=== PATIENT | male | born 1985 | race Caucasian/White ===

== ENCOUNTER 2024-04-18 12:27 | Emergency (ER) | payer BC, SELFPAY ==
[2024-04-18 12:30] VITALS: BP 130/90
[2024-04-18 12:58] LABS: Urine Albumin Negative (Neg - Trace); Urine Bilirubin Negative (Negative); Urine Character Clear (Clear); Urine Color Yellow; Urine Glucose Negative (Negative); Urine Ketone Negative (Negative); Urine Leukocyte Negative (Negative); Urine Nitrite Negative (Negative); Urine Occult Blood Negative (Negative); Urine Urobilinogen Negative (Neg - 1+); Urine pH 6.5 (5.0-9.0)
[2024-04-18 13:39] LABS: % Basophils 0.8 % (0-2); % Eosinophils 1.7 % (0-6); % Immature Granulocytes 0.4 % (0-0.5); % Monocytes 11.4 % (1.7-9.3); % Neutrophils 61.7 % (42.2-75.2); Absolute Eosinophils 0.1 10^3/uL (0-0.7); Absolute Lymphocytes 1.3 10^3/uL (1.2-3.4); Absolute Monocytes 0.6 10^3/uL (0.1-0.6); Absolute Neutrophils 3.3 10^3/uL (1.4-6.5); Hematocrit 41.8 % (39.0-52.0); Mean Corp Hgb Conc. 35.9 g/dL (33.0-37.0); Mean Corpuscular Volume 80.7 fL (80.0-94.0); Mean Platelet Volume 10.5 fL (7.4-10.4); Nucleated Red Blood Cells % 0 % (-); Platelet Count 210 10^3/uL (130-400); Red Blood Cell Count 5.18 10^6/uL (4.70-6.10); Red Cell Dist. Width 12.6 % (11.5-14.5); White Blood Cell Count 5.3 10^3/uL (4.8-10.8)
[2024-04-18 13:50] LABS: ALT (SGPT) 43 U/L (0-50); AST (SGOT) 33 U/L (17-59); Albumin 4.1 g/dl (3.5-5.0); Alkaline Phosphatase 63 U/L (38-126); Blood Urea Nitrogen 15 mg/dl (9-20); Carbon Dioxide 27 mmol/L (22-30); Chloride 103 mmol/L (98-107); Glucose 106 mg/dl (70-99); Potassium 3.6 mmol/L (3.5-5.1); Sodium 137 mmol/L (135-145); Total Bilirubin 1.2 mg/dl (0.2-1.3); eGFR > 60.00
[2024-04-18 14:16] LABS: PSA, Total - Screen 0.83 ng/ml (0.0-4.0)
--- NOTE | 2024-04-18 14:28 | ED.GENMED ---
History of Present Illness
General
Chief Complaint: Urinary Symptoms
Source: patient and spouse
Exam Limitations: none
Time Seen by Provider: 04/18/24 12:34
Nursing documentation reviewed up to this point in time: agreed with
History of Present Illness
History of Present Illness:
Patient to ED with complaint of urinary frequency and urgency. Symptoms started approx 1 week ago. No issues during sleep. Denies fever/chills, n/v/d. States last PM he developed a muscle cramp and when he got up to walk it off he became
lightheaded weak and diaphoretic. Brought to ED by spouse for eval. History of Thyroid Ca 2020. He is concerned that he now has prostate cancer and that this is causing his symptoms
Past History
Past History
ED Past Medical History: Cancer (Thyroid), HTN and Hypothyroidism (Postsurgical)
ED Past Surgical History: Other (thyroidectomy, thyroid CA)
Social History
Tobacco: Non-smoker
Alcohol: None
Drug: None
Personal:
Living: with family
Employment: Employed
Family History
Family History: Hypertension and Cancer; Negative Early CAD, CAD or Sudden
Review of Systems
Review of Systems
Allergies reviewed?: Yes
All Other Systems: ROS reviewed and negative except as documented in HPI and ROS
Constitutional: Reports no symptoms
EENT: Reports no symptoms
Respiratory: Reports no symptoms
Cardiac: Reports no symptoms
ABD/GI: Reports no symptoms
: Reports frequency and urgency
Musculoskeletal: Reports no symptoms
Skin: Reports no symptoms
Neurological: Reports no symptoms
Psychiatric: Reports no symptoms
Phy Exam
General Physical Exam
General Presentation: well appearing and no apparent distress
General age: appears stated age
General Skin: warm and dry
General Habitus: normal
General Mental: alert
General Hydration: appears well hydrated
Pulmonary Exam
Pulmonary Exam: no respiratory distress and chest non tender
Gastrointestinal Exam
Gastrointestinal Exam: normal bowel sounds, non tender, soft and no organomegaly
Musculoskeletal Exam
Musculoskeletal Exam: full ROM and neuro vasc intact
Skin Exam
Skin Exam: normal color, warm/dry and no rash
Psychiatric Exam
Psychiatric Exam: normal mood/affect
Course
Orders/Labs/Results
Orders:
Orders
04/18/24 12:42
Urinalysis Reflex To Culture Urgent
Date Specimen was Collected: 04/18/24
Time Specimen was Collected: 12:36
04/18/24 13:28
Complete Blood Count/With Diff Urgent
Comprehensive Metabolic Panel Urgent
PSA, Total - Screen Routine
Abnormal Lab Results
04/18/24
13:28
MPV 10.5 H fL
(7.4-10.4)
Monocytes % 11.4 H %
(1.7-9.3)
Glucose 106 H mg/dl
(70-99)
04/18/24 13:28
04/18/24 13:28
Vital Signs
Initial and Last Documented VS:
Initial Vital Signs
Temp Pulse Resp BP Pulse Ox
98.6 F 84 18 130/90 97
04/18/24 12:30 04/18/24 12:30 04/18/24 12:30 04/18/24 12:30 04/18/24 12:30
Last Documented Vital Signs
Temp Pulse Resp BP Pulse Ox
98.6 F 84 18 130/90 97
04/18/24 12:30 04/18/24 12:30 04/18/24 12:30 04/18/24 12:30 04/18/24 12:30
*Critical Care Note
Total Time (30-74mins, 75-104mins- exclusive of procedures): Not Applicable
Update Note
Update Note:
Labs reviewed with patient. PSA screening ordered as he demonstrates elevated anxiety over thoughts of prostate CA. Screening is neg. Bladder scan without evidence of retention. UA neg for infection. Will discharge home and he will follow up
with PCP. Given number for urology follow up if symptoms persist.
ED Attending Note
-
Portions of this chart may have been created with voice recognition software.� Occasional wrong word or��sound alike� substitutions may have occurred due to the inherent limitations of voice recognition software.
Discharge Plan
Departure
Patient Disposition: Home (Routine Discharge)
Date of Disposition: 04/18/24
Time of Disposition: 14:26
Patient with high blood pressure during this ER visit?: No
Condition: Good
Covid-19: Not Applicable
Discharge Problem:
Urinary frequency
Instructions: General
Prescriptions:
No Action
levothyroxine 200 MCG tablet
200 mcg PO DAILY
azelastine 1 SPRAY aerosol,spray
1 spray intranasal DAILY
lisinopril-hydrochlorothiazide 20-25 mg Tablet
1 tab PO DAILY
Referrals:
Lily Jarvis MD [Family Provider] -
Norm Robison MD [Active] - Next open appointment
Interventions
Interventions:
*Risk Screen - Suicide Last Done: 04/18/24 12:35
*General Assessment Last Done: 04/18/24 13:11
*Neglect/Abuse Screening Last Done: 04/18/24 12:35
*ED COVID-19 Vaccine History Last Done: 04/18/24 13:11
ED-Male Genitourinary Assessment Last Done: 04/18/24 13:09
Discharge Date and Time
Print Language: SLOVENIAN
== END 2024-04-18 14:50 | disposition home or self-care (01) ==
LOC: EMR 12:27
PROVIDERS: Nurse Practitioner; EMERGENCY PHYSICIAN Emergency Medicine; FAMILY PHYSICIAN Internal Medicine
DX: R35.0 Frequency of micturition (principal); R39.15 Urgency of urination; R42 Dizziness and giddiness; R61 Generalized hyperhidrosis; R11.0 Nausea; I10 Essential (primary) hypertension; E89.0 Postprocedural hypothyroidism; Z85.850 Personal history of malignant neoplasm of thyroid; Z91.013 Allergy to seafood
CPT/HCPCS: 99283; 51798; 80053; 81003; 85025; G0103